=== PATIENT | male | born 1935 | race Caucasian/White ===

== ENCOUNTER 2016-12-11 10:40 | Outpatient (CLI) | payer MEDICARE, OTHER | END 2016-12-11 10:41 | disposition home or self-care (01) | DX: R10.11 Right upper quadrant pain (principal); R10.31 Right lower quadrant pain ==

== ENCOUNTER 2016-12-11 13:18 | Outpatient (CLI) | payer MEDICARE, OTHER ==
[2016-12-11] MEDS ORDERED: IOPAMIDOL-300 50 ML VIAL PO ONE (15:52)
[2016-12-11] MEDS ORDERED: IOPAMIDOL-300 100 ML VIAL IVP ONE (15:52)
== END 2016-12-11 13:19 | disposition home or self-care (01) ==
DX: K80.20 Calculus of gallbladder without cholecystitis without obstruction (principal); R19.09 Other intra-abdominal and pelvic swelling, mass and lump; N40.0 Benign prostatic hyperplasia without lower urinary tract symptoms; I70.0 Atherosclerosis of aorta

== ENCOUNTER 2016-12-11 17:56 | Inpatient (IN) | payer MEDICARE, OTHER ==
[2016-12-11] MEDS ORDERED: ONDANSETRON 4 MG/2 ML VIAL IVP STA (19:16)
[2016-12-11] MEDS ORDERED: SODIUM CHLORIDE 0.9% 1,000 ML IV ONE (19:16)
[2016-12-11] MEDS ORDERED: POTASSIUM CHLOR 10 MEQ/100 ML 100 ML IV ONE ×2 (19:17→19:26)
[2016-12-11] MEDS ORDERED: ONDANSETRON 4 MG/2 ML VIAL ONE (19:26)
[2016-12-11] MEDS ORDERED: PIPERACILLIN/TAZOBACTAM 3.375 GM in SODIUM CHLORIDE 0.9% MINIBAG 100 ML IV STA (19:47)
[2016-12-11] MEDS ORDERED: MORPHINE 2 MG/ML SYRINGE IVP PRN (20:07)
[2016-12-11] MEDS: LACTATED RINGERS 1,000 ML IV SCH (21:13)
[2016-12-11] MEDS: SODIUM CHLORIDE FLUSH 0.9% 10 ML SYRINGE IVP SCH (22:14)
[2016-12-12] MEDS: PIPERACILLIN/TAZOBACTAM 3.375 GM in SODIUM CHLORIDE 0.9% MINIBAG 100 ML IV SCH ×4 (04:01→20:11)
[2016-12-12] MEDS: SODIUM CHLORIDE FLUSH 0.9% 10 ML SYRINGE IVP SCH ×3 (07:33→20:11)
[2016-12-12] MEDS: LACTATED RINGERS 1,000 ML IV SCH (08:33)
[2016-12-12] MEDS: D5.45NS W/20 MEQ KCL 1,000 ML IV SCH ×2 (10:24→20:10)
[2016-12-12] MEDS: POTASSIUM CHLOR 10 MEQ/100 ML 100 ML IV SCH ×2 (10:25→11:45)
[2016-12-13] MEDS: PIPERACILLIN/TAZOBACTAM 3.375 GM in SODIUM CHLORIDE 0.9% MINIBAG 100 ML IV SCH ×4 (03:38→21:19)
[2016-12-13] MEDS: SODIUM CHLORIDE FLUSH 0.9% 10 ML SYRINGE IVP SCH ×3 (03:39→21:20)
[2016-12-13] MEDS: D5.45NS W/20 MEQ KCL 1,000 ML IV SCH ×3 (07:05→19:23)
[2016-12-13] MEDS ORDERED: ONDANSETRON 4 MG/2 ML VIAL IVP ONE (13:00)
[2016-12-13] MEDS ORDERED: NEOSTIGMINE 1 MG/1 ML 10 ML MDV IVP ONE (13:00)
[2016-12-13] MEDS ORDERED: LIDOCAINE-MPF 2% 5 ML VIAL IM ONE (13:00)
[2016-12-13] MEDS ORDERED: ROCURONIUM 50 MG/5 ML VIAL IVP ONE (13:00)
[2016-12-13] MEDS ORDERED: PROPOFOL 200 MG/20 ML VIAL IVP ONE (13:00)
[2016-12-13] MEDS ORDERED: GLYCOPYRROLATE 1 MG/5 ML VIAL IVP ONE (13:00)
[2016-12-13] MEDS ORDERED: MIDAZOLAM 2 MG/2 ML VIAL IVP ONE (13:00)
[2016-12-13] MEDS ORDERED: fentaNYL 100 MCG/2 ML VIAL IVP ONE (13:00)
[2016-12-13] MEDS ORDERED: DEXAMETHASONE 4 MG/ML VIAL IVP ONE (13:00)
[2016-12-13] MEDS ORDERED: LACTATED RINGERS 1,000 ML IV ONE ×3 (13:06→14:28)
[2016-12-13] MEDS ORDERED: BUPIVACAINE 0.5%-EPI 1:200000 PF 30 ML VIAL SUBQ ONE (13:31)
[2016-12-13] MEDS ORDERED: oxyCOD/ACETAMIN 5 MG/325 MG TABLET PO PRN (15:43)
[2016-12-13] MEDS ORDERED: MIDAZOLAM 2 MG/2 ML VIAL ONE (15:48)
[2016-12-13] MEDS: fentaNYL 100 MCG/2 ML VIAL ONE ×2 (16:00→16:20)
[2016-12-13] MEDS ORDERED: KETOROLAC 15 MG/ML VIAL ONE (16:22)
[2016-12-13] MEDS: MORPHINE 2 MG/ML SYRINGE IVP PRN ×3 (17:53→23:40)
[2016-12-13] MEDS: SODIUM CHLORIDE FLUSH 0.9% 10 ML SYRINGE IVP PRN ×2 (17:54→21:31)
[2016-12-13] MEDS ORDERED: ATORVASTATIN 10 MG TABLET PO SCH (21:00)
[2016-12-13] MEDS: CARBIDOPA/LEVODOPA ER 25 MG/100 MG TABLET PO SCH (21:19)
[2016-12-14] MEDS: PIPERACILLIN/TAZOBACTAM 3.375 GM in SODIUM CHLORIDE 0.9% MINIBAG 100 ML IV SCH ×2 (03:14→08:30)
[2016-12-14] MEDS: D5.45NS W/20 MEQ KCL 1,000 ML IV SCH ×2 (03:20→03:21)
[2016-12-14] MEDS: MORPHINE 2 MG/ML SYRINGE IVP PRN ×2 (04:53→08:26)
[2016-12-14] MEDS: CARBIDOPA/LEVODOPA ER 25 MG/100 MG TABLET PO SCH ×2 (06:09→14:35)
[2016-12-14] MEDS: SODIUM CHLORIDE FLUSH 0.9% 10 ML SYRINGE IVP SCH (08:09)
[2016-12-14] MEDS ORDERED: hydroCHLOROthiazide 25 MG TABLET PO SCH (09:00)
[2016-12-14] MEDS ORDERED: MULTIVITAMIN TABLET PO SCH (09:00)
[2016-12-14] MEDS ORDERED: LISINOPRIL 20 MG TABLET PO SCH (09:00)
[2016-12-14] MEDS ORDERED: amLODIPine 5 MG TABLET PO SCH (09:00)
== END 2016-12-14 15:04 | disposition home or self-care (01) | DRG 419 ==
PROC: 0FT44ZZ Resection of Gallbladder, Percutaneous Endoscopic Approach (ICD-10-PCS; principal; 2016-12-11)
DX: K80.00 Calculus of gallbladder with acute cholecystitis without obstruction (principal); R25.1 Tremor, unspecified; I10 Essential (primary) hypertension; G20 Parkinson's disease; E78.5 Hyperlipidemia, unspecified; H40.9 Unspecified glaucoma; E66.9 Obesity, unspecified; Z68.37 Body mass index [BMI] 37.0-37.9, adult; D18.03 Hemangioma of intra-abdominal structures; Z79.899 Other long term (current) drug therapy; N40.0 Benign prostatic hyperplasia without lower urinary tract symptoms; Z87.891 Personal history of nicotine dependence; I70.0 Atherosclerosis of aorta; R19.09 Other intra-abdominal and pelvic swelling, mass and lump

== ENCOUNTER 2017-02-12 13:10 | Outpatient (CLI) | payer MEDICARE, OTHER | END 2017-02-12 13:11 | disposition home or self-care (01) | DX: Z90.49 Acquired absence of other specified parts of digestive tract (principal); I10 Essential (primary) hypertension ==

== ENCOUNTER 2017-02-22 14:37 | Outpatient (CLI) | payer MEDICARE, OTHER ==
[2017-02-22] MEDS ORDERED: IOPAMIDOL-300 100 ML VIAL IVP ONE (16:08)
[2017-02-22] MEDS ORDERED: IOPAMIDOL-300 50 ML VIAL PO ONE (16:08)
== END 2017-02-22 14:38 | disposition home or self-care (01) ==
DX: R10.9 Unspecified abdominal pain (principal); Z90.49 Acquired absence of other specified parts of digestive tract; M51.36 Other intervertebral disc degeneration, lumbar region
CPT/HCPCS: 74177; Q9967